=== PATIENT | female | born 1985 | race Caucasian/White ===

== ENCOUNTER 2018-02-22 05:22 | Inpatient (IN) | payer MEDICAID ==
[~2018-02-22] VITALS: Ht 162.6 cm; Wt 89.1 kg
[2018-02-22] VITALS (18 sets, daily range): BP systolic 96–137; BP diastolic 58–98; PULSE 66–82; TEMP 97.5–98
[~2018-02-22 05:22] MED LIST: AMOXICILLIN 8751 TAB PO; DEPO-PROVER150 MG/M1 IM; FLEXERIL10 MG PO; MOTRIN 600600 MG/TAB PO; NAPROSYN500 MG PO; NO HOME MEDICATIONS; PERCOCET 325 MG1 TA2 PO; PRENATAL1 TA1 PO; ZOVIRAX400 MG PO
[2018-02-22 06:26] LABS: BASO % 0.5 % (0.0-2.0); EOS # 0.1 (0.0-0.7); EOS % 1.5 % (0-4.0); GRAN # 3.4 (1.4-6.5); GRAN % 55.8 % (42.2-75.2); HEMOGLOBIN 12.5 g/dl (12.5-16.0); LYMPH # 1.9 (1.2-3.4); LYMPH % 31.4 % (20.0-51.0); MEAN CELL VOLUME 91 fl (80.0-100.0); MEAN CORPUSCULAR HEMOGLOBIN 32 pg (27.0-31.0); MEAN CORPUSCULAR HGB CONC 35 g/dl (33.0-37.0); MEAN PLATELET VOLUME 11.7 fl (7.4-10.4); MONO # 0.6 (0.1-0.6); PLATELET COUNT 191 K/mm3 (130-400); RED BLOOD COUNT 3.94 M/mm3 (4.10-5.30); REDCELL DISTRIBUTION WIDTH-CV 12.3 % (11.5-14.5)
[2018-02-22] MEDS ORDERED: ZOVIRAX400 MG PO (06:27)
[2018-02-22 06:29] LABS: HEMATOCRIT 35.7 % (37.0-47.0)
[2018-02-22] MEDS ORDERED: IBU600 MG PO (08:42)
[2018-02-22] MEDS ORDERED: PERCOCET 325 MG1 TA2 PO (08:42)
[2018-02-23 00:20] VITALS: BP 115/78; PULSE 74
[2018-02-23 04:30] VITALS: BP 108/64; PULSE 86; TEMP 97.9
[2018-02-23 07:30] VITALS: BP 109/62; PULSE 88; TEMP 98.1
[2018-02-23 08:33] LABS: HEMATOCRIT 30.7 % (37.0-47.0); HEMOGLOBIN 10.3 g/dl (12.5-16.0)
[2018-02-23 12:00] VITALS: BP 119/66; PULSE 91; TEMP 98.6
[2018-02-23 17:00] VITALS: BP 118/73; PULSE 82; TEMP 98.4
[2018-02-23 21:30] VITALS: BP 118/79; PULSE 85; TEMP 97.8
[2018-02-24 07:30] VITALS: BP 117/85; PULSE 85; TEMP 98.4
== END 2018-02-24 11:15 | disposition home or self-care (01) | DRG 765 ==
LOC: LDR 05:22 → OB 05:36 → LDR 07:08 → OB 02-24 11:15
PROVIDERS: Obstetrics & Gynecology
PROC: 10D00Z1 Extraction of Products of Conception, Low, Open Approach (ICD-10-PCS; principal; 2018-02-22)
PROC: 0UT50ZZ Resection of Right Fallopian Tube, Open Approach (ICD-10-PCS; 2018-02-22)
DX: O34.211 Maternal care for low transverse scar from previous cesarean delivery (principal); O98.52 Other viral diseases complicating childbirth; B00.89 Other herpesviral infection; Z3A.39 39 weeks gestation of pregnancy; Z37.0 Single live birth; Z30.2 Encounter for sterilization
CPT/HCPCS: J0690; J1885; J2270; J2405; J2590; J7120

== ENCOUNTER 2018-03-09 13:35 | Emergency (ER) | payer MEDICAID ==
[~2018-03-09] VITALS: Ht 167.6 cm; Wt 81.4 kg
[~2018-03-09 13:35] MED LIST changes: +IBU600 MG PO
[2018-03-09 13:39] VITALS: TEMP 98.8
[2018-03-09] MEDS ORDERED: CEPHALEXIN500 M1 PO (14:09)
[2018-03-09 14:41] VITALS: BP 120/72; PULSE 75
== END 2018-03-09 14:41 | disposition home or self-care (01) ==
LOC: COL.ER 13:35
DX: O86.0 Infection of obstetric surgical wound (principal); Z98.890 Other specified postprocedural states

== ENCOUNTER → 2018-08-26 | Outpatient (CLI) | payer MEDICAID ==
[~2018-08-26] MED LIST changes: +CEPHALEXIN500 M1 PO
== END ==
LOC: COL.RAD 14:25
DX: M51.27 Other intervertebral disc displacement, lumbosacral region (principal)

== ENCOUNTER 2019-02-20 11:48 | Emergency (ER) | payer MEDICAID ==
[~2019-02-20] VITALS: Ht 165.1 cm; Wt 81.8 kg
[2019-02-20 11:52] VITALS: BP 138/88; TEMP 97
[2019-02-20 13:05] VITALS: PULSE 83
== END 2019-02-20 13:05 | disposition home or self-care (01) ==
LOC: COL.ER 11:48
DX: S91.011A Laceration without foreign body, right ankle, initial encounter (principal); F17.210 Nicotine dependence, cigarettes, uncomplicated; W25.XXXA Contact with sharp glass, initial encounter; Y92.009 Unspecified place in unspecified non-institutional (private) residence as the place of occurrence of the external cause

== ENCOUNTER → 2020-09-01 | Outpatient (CLI) | payer BC | LOC: COL.RAD 13:34 | DX: N92.0 Excessive and frequent menstruation with regular cycle (principal) ==

== ENCOUNTER → 2021-11-07 | Outpatient (CLI) | payer BC ==
[~2021-11-07] VITALS: Ht 165.1 cm; Wt 77.8 kg
[~2021-11-07] MED LIST changes: +LEXAPRO 10MG10 MG PO; +MAXALT MLT10 MG/TAB PO
[2021-11-07 13:03] VITALS: BP 129/89; PULSE 69; TEMP 98.9
[2021-11-07 14:05] VITALS: BP 129/91; PULSE 71
== END ==
LOC: COL.RAD 12:52
DX: M51.26 Other intervertebral disc displacement, lumbar region (principal)
CPT/HCPCS: J3301

== ENCOUNTER → 2022-11-23 | Outpatient (CLI) | payer BC ==
[~2022-11-23] VITALS: Ht 165.1 cm; Wt 78.2 kg
[~2022-11-23] MED LIST changes: +QULIPTA60 MG PO
[2022-11-23 11:45] VITALS: BP 130/87; PULSE 65; TEMP 98.3
== END ==
LOC: COL.RAD 11:21
DX: M51.26 Other intervertebral disc displacement, lumbar region (principal)
CPT/HCPCS: J3301